=== PATIENT | male | born 1960 | race Caucasian/White ===

== ENCOUNTER 2020-07-16 11:04 | Outpatient (CLI) | payer BC, SELFPAY ==
--- NOTE | 2020-07-16 11:17 | ECG_ITS ---
[facility] Test Date: 2020-07-16 Pat Name: Tomasz Vela Department: Room: Gender: Male Director Transportation: : 1960 Requested By: DOCTOR NOT ON FILE Order Number: [id number] Will MD: Christi Tolbert M.D. Measurements Intervals [place] Rate: 86 P: -46 [place]: 327 QRS: -35 QRSD: 98 T: 150 QT: 421 QTc: 505 Interpretive Statements A paced, V sensed rhythm Sensed AV delay of 440 ms MARKED LEFT AXIS DEVIATION [QRS AXIS < -30] LEFT VENTRICULAR HYPERTROPHY AND ST-T CHANGE [VOLTAGE CRITERIA PLUS ST/T ABNORMALITY] No previous ECG available for comparison Electronically Signed On 07-17-2020 0:00:56 SENIOR LEAD JAVA DEVELOPER by Christi Tolbert M.D. [email or web address].Sport Nginmer[facility] madisonSolve[id number]
[2020-07-16 11:54] LABS: Anion Gap 13.1 (5-19); Blood Urea Nitrogen 19 mg/dL (6-20); Calcium 9.1 mg/dL (8.5-10.5); Carbon Dioxide 26 mmol/L (22-29); Chloride 103 mmol/L (98-107); Glucose 85 mg/dL (65-115); Magnesium 1.9 mg/dL (1.7-2.3); Osmolality Calculated 288 mOsm/kg (285-295); Potassium 4.1 mmol/L (3.5-5.1); Sodium 138 mmol/L (136-145)
== END 2020-07-16 11:05 | disposition home or self-care (01) ==
LOC: LAB 11:09
DX: I47.2 Ventricular tachycardia (principal); I48.4 Atypical atrial flutter; I42.1 Obstructive hypertrophic cardiomyopathy; I48.91 Unspecified atrial fibrillation
CPT/HCPCS: 36415; 80048; 83735; 93005

== ENCOUNTER 2020-08-16 08:38 | Outpatient (CLI) | payer BC, SELFPAY ==
--- NOTE | 2020-08-16 09:16 | ECG_ITS ---
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 f
[2020-08-16 09:34] LABS: Anion Gap 13.8 (5-19); Blood Urea Nitrogen 21 mg/dL (8-23); Calcium 8.8 mg/dL (8.5-10.5); Carbon Dioxide 24 mmol/L (22-29); Chloride 104 mmol/L (98-107); Glomerular Filtration Rate 86.1 mL/min (90-130); Glucose 165 mg/dL (65-115); Magnesium 1.7 mg/dL (1.7-2.3); Osmolality Calculated 293 mOsm/kg (285-295); Potassium 3.8 mmol/L (3.5-5.1); Sodium 138 mmol/L (136-145)
== END 2020-08-16 08:39 | disposition home or self-care (01) ==
LOC: RT 08:44
DX: I47.2 Ventricular tachycardia (principal); I47.1 Supraventricular tachycardia; I48.4 Atypical atrial flutter; I42.1 Obstructive hypertrophic cardiomyopathy; I48.91 Unspecified atrial fibrillation; R94.31 Abnormal electrocardiogram [ECG] [EKG]
CPT/HCPCS: 36415; 80048; 83735; 93005

== ENCOUNTER 2020-08-19 08:12 | Outpatient (CLI) | payer BC, SELFPAY ==
--- NOTE | 2020-08-19 09:54 | ECG_ITS ---
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 Measurements Intervals [place] Rate: 74 P: 267 DC: 306 QRS: -16 QRSD: 102 T: 149 QT: 489 QTc: 543 Interpretive Statements A paced rhythm LEFT VENTRICULAR HYPERTROPHY AND ST-T CHANGE Compared to ECG 08/16/2020 08:57:22 Ectopic atrial rhythm now present First degree AV block now present Left ventricular hypertrophy now present ST (T wave) deviation now present T-wave abnormality no longer present Possible ischemia no longer present Electronically Signed On 09-03-2020 17:52:28 CDT by Barbara Martínez M.D. [id number] f
== END 2020-08-19 08:13 | disposition home or self-care (01) ==
PROVIDERS: Visit Provider Internal Medicine Clinical Cardiac Electrophysiology
DX: I47.2 Ventricular tachycardia (principal); I47.1 Supraventricular tachycardia; I48.4 Atypical atrial flutter; I42.1 Obstructive hypertrophic cardiomyopathy; I48.0 Paroxysmal atrial fibrillation
CPT/HCPCS: 93005

== ENCOUNTER 2020-08-29 08:02 | Outpatient (CLI) | payer BC, SELFPAY ==
--- NOTE | 2020-08-29 08:28 | ECG_ITS ---
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 Measurements Intervals [place] Rate: 88 P: [place]: QRS: -11 QRSD: 97 T: 163 QT: 376 QTc: 456 Interpretive Statements Atrial fibrillation with a demand V pacing. Diffuse nonspecific ST-T changes. Voltage criteria for LVH compared to ECG 08/19/2020 08:40:55 Ectopic atrial rhythm no longer present First degree AV block no longer present ST (T wave) deviation still present Electronically Signed On 08-29-2020 21:53:19 CDT by Christi Tolbert M.D. [id number]
[2020-08-29 09:02] LABS: Anion Gap 13.8 (5-19); Blood Urea Nitrogen 18 mg/dL (8-23); Calcium 8.9 mg/dL (8.5-10.5); Carbon Dioxide 27 mmol/L (22-29); Chloride 101 mmol/L (98-107); Glomerular Filtration Rate 68.3 mL/min (90-130); Glucose 108 mg/dL (65-115); Magnesium 1.9 mg/dL (1.7-2.3); Osmolality Calculated 288 mOsm/kg (285-295); Potassium 3.8 mmol/L (3.5-5.1); Sodium 138 mmol/L (136-145)
== END 2020-08-29 08:03 | disposition home or self-care (01) ==
LOC: RT 08:07
DX: I47.2 Ventricular tachycardia (principal); I47.1 Supraventricular tachycardia; I48.4 Atypical atrial flutter; I42.1 Obstructive hypertrophic cardiomyopathy; I48.91 Unspecified atrial fibrillation
CPT/HCPCS: 36415; 80048; 83735; 93005

== ENCOUNTER 2020-09-11 08:11 | Outpatient (CLI) | payer BC, SELFPAY ==
[2020-09-11 08:55] LABS: Anion Gap 11.6 (5-19); Blood Urea Nitrogen 24 mg/dL (8-23); Calcium 8.7 mg/dL (8.5-10.5); Carbon Dioxide 27 mmol/L (22-29); Chloride 102 mmol/L (98-107); Glomerular Filtration Rate 76.2 mL/min (90-130); Glucose 110 mg/dL (65-115); Magnesium 1.7 mg/dL (1.7-2.3); Osmolality Calculated 289 mOsm/kg (285-295); Potassium 3.6 mmol/L (3.5-5.1); Sodium 137 mmol/L (136-145)
== END 2020-09-11 08:12 | disposition home or self-care (01) ==
LOC: LAB 08:16
PROVIDERS: Visit Provider Internal Medicine Clinical Cardiac Electrophysiology
DX: I47.2 Ventricular tachycardia (principal); I47.1 Supraventricular tachycardia; I48.4 Atypical atrial flutter; I42.1 Obstructive hypertrophic cardiomyopathy; I48.91 Unspecified atrial fibrillation
CPT/HCPCS: 36415; 80048; 83735

== ENCOUNTER 2020-09-16 08:04 | Outpatient (CLI) | payer BC, SELFPAY ==
[2020-09-16 09:02] LABS: Blood Urea Nitrogen 19 mg/dL (8-23); Calcium 8.5 mg/dL (8.5-10.5); Carbon Dioxide 27 mmol/L (22-29); Chloride 103 mmol/L (98-107); Glomerular Filtration Rate 86.1 mL/min (90-130); Glucose 142 mg/dL (65-115); Magnesium 1.6 mg/dL (1.7-2.3); Osmolality Calculated 295 mOsm/kg (285-295); Sodium 140 mmol/L (136-145)
== END 2020-09-16 08:05 | disposition home or self-care (01) ==
LOC: LAB 08:13
PROVIDERS: Visit Provider Internal Medicine Clinical Cardiac Electrophysiology
DX: I47.2 Ventricular tachycardia (principal); I48.4 Atypical atrial flutter; I42.1 Obstructive hypertrophic cardiomyopathy; I48.91 Unspecified atrial fibrillation
CPT/HCPCS: 36415; 80048; 83735

== ENCOUNTER 2020-09-24 08:00 | Outpatient (CLI) | payer BC, SELFPAY ==
[2020-09-24 08:39] LABS: Blood Urea Nitrogen 19 mg/dL (8-23); Calcium 8.3 mg/dL (8.5-10.5); Carbon Dioxide 26 mmol/L (22-29); Chloride 103 mmol/L (98-107); Glomerular Filtration Rate 86.1 mL/min (90-130); Glucose 104 mg/dL (65-115); Magnesium 1.7 mg/dL (1.7-2.3); Osmolality Calculated 291 mOsm/kg (285-295); Sodium 139 mmol/L (136-145)
== END 2020-09-24 08:01 | disposition home or self-care (01) ==
PROVIDERS: Visit Provider Internal Medicine Clinical Cardiac Electrophysiology
DX: I47.2 Ventricular tachycardia (principal); I47.1 Supraventricular tachycardia; I48.4 Atypical atrial flutter; I42.1 Obstructive hypertrophic cardiomyopathy; I48.91 Unspecified atrial fibrillation
CPT/HCPCS: 36415; 80048; 83735

== ENCOUNTER 2021-12-01 08:16 | Outpatient (CLI) | payer OTHER, SELFPAY ==
[2021-12-01 09:14] LABS: Blood Urea Nitrogen 39 mg/dL (8-23); Calcium 9.7 mg/dL (8.5-10.5); Carbon Dioxide 22 mmol/L (22-29); Chloride 102 mmol/L (98-107); Glomerular Filtration Rate 56.1 mL/min (90-130); Glucose 103 mg/dL (65-115); Osmolality Calculated 288 mOsm/kg (285-295); Sodium 134 mmol/L (136-145)
[2021-12-01 09:17] LABS: Anion Gap 15.4 (5-19); Potassium 5.4 mmol/L (3.5-5.1)
== END 2021-12-01 08:17 | disposition home or self-care (01) ==
PROVIDERS: Visit Provider Internal Medicine Cardiovascular Disease
DX: I48.0 Paroxysmal atrial fibrillation (principal)
CPT/HCPCS: 80048

== ENCOUNTER → 2022-04-13 11:39 | Outpatient (BNVA) | payer OTHER, SELFPAY | PROVIDERS: Visit Provider Emergency Medicine | DX: I10 Essential (primary) hypertension (principal); I48.0 Paroxysmal atrial fibrillation; I51.89 Other ill-defined heart diseases; J01.00 Acute maxillary sinusitis, unspecified; R31.0 Gross hematuria; R39.9 Unspecified symptoms and signs involving the genitourinary system; Z86.79 Personal history of other diseases of the circulatory system | CPT/HCPCS: 80048; 81000 ==

== ENCOUNTER → 2022-04-21 10:08 | Outpatient (BNVA) | payer OTHER, SELFPAY | PROVIDERS: Visit Provider Family Medicine | DX: Z12.5 Encounter for screening for malignant neoplasm of prostate (principal); R30.0 Dysuria; I10 Essential (primary) hypertension; I48.91 Unspecified atrial fibrillation; I42.1 Obstructive hypertrophic cardiomyopathy; I42.2 Other hypertrophic cardiomyopathy; E78.9 Disorder of lipoprotein metabolism, unspecified | CPT/HCPCS: 80053; 84153; 85025 ==

== ENCOUNTER → 2022-06-23 09:01 | Outpatient (BNVA) | payer OTHER, SELFPAY | PROVIDERS: PCP Family Medicine; Visit Provider Family Medicine | DX: I25.10 Atherosclerotic heart disease of native coronary artery without angina pectoris (principal) | CPT/HCPCS: 80048 ==

== ENCOUNTER → 2022-09-14 10:20 | Outpatient (BNVA) | payer OTHER, SELFPAY | PROVIDERS: PCP Family Medicine; Visit Provider Internal Medicine Cardiovascular Disease | DX: I42.2 Other hypertrophic cardiomyopathy (principal); I51.89 Other ill-defined heart diseases; R55 Syncope and collapse | CPT/HCPCS: 80048 ==